=== PATIENT | female | born 1990 | race African-American/Black ===

== ENCOUNTER 2018-04-09 03:42 | Emergency (ER) | payer MEDICAID ==
[~2018-04-09] VITALS: Ht 165.1 cm; Wt 75.0 kg
[2018-04-09] MEDS ORDERED: PREDNISONE 20MG TABLET PO STA (03:59)
[2018-04-09] MEDS ORDERED: ALBUTEROL (0.083%) 2.5MG/3ML NEB HHN STA (03:59)
[2018-04-09] MEDS ORDERED: IPRATROPIUM BROMIDE (0.02%) 0.5MG/2.5ML NEB HHN STA (03:59)
[2018-04-09 06:10] VITALS: BP 116/95
== END 2018-04-09 07:20 | disposition home or self-care (01) ==
LOC: ER 03:42
DX: Z33.1 Pregnant state, incidental (principal); J45.901 Unspecified asthma with (acute) exacerbation
CPT/HCPCS: 81025; 99283; J7512; J7611

== ENCOUNTER 2018-04-09 14:19 | Inpatient (IN) | payer MEDICAID ==
[~2018-04-09] VITALS: Ht 165.1 cm; Wt 76.9 kg
[2018-04-09] MEDS ORDERED: METHYLPREDNISOLONE SOD SUCC 125 MG/2 ML VIAL IV STA (14:27)
[2018-04-09] MEDS ORDERED: ALBUTEROL (0.083%) 2.5MG/3ML NEB HHN STA (14:27)
[2018-04-09] MEDS ORDERED: IPRATROPIUM BROMIDE (0.02%) 0.5MG/2.5ML NEB HHN STA (14:27)
[2018-04-09] MEDS ORDERED: EPINEPHRINE 1:1000 1 MG/ML AMP SUBCUT ONE (14:30)
[2018-04-09] MEDS ORDERED: MAGNESIUM 2 G PREMIX 50 ML IV ONE (14:30)
[2018-04-09] MEDS ORDERED: SODIUM CHLORIDE 0.9% 1,000 ML IV ONE (14:33)
[2018-04-09] MEDS ORDERED: ALBUTEROL (0.5%) 2.5MG/0.5ML NEB HHN ONE (14:40)
[2018-04-09] MEDS ORDERED: LORAZEPAM 2MG/ML CPJ IV ONE (14:45)
[2018-04-09 15:22] LABS: BASOPHILS % 0.3 % (0.0-2.0); HEMATOCRIT. 37.7 % (36.0-48.0); HEMOGLOBIN. 13.2 g/dL (12.0-16.0); MEAN CORPUSCULAR HEMOGLOBIN 33.7 pg (28.0-32.0); MEAN CORPUSCULAR VOLUME 96.4 fL (81.0-99.0); MEAN PLATELET VOLUME 6.9 fl (7.4-10.4); MONOCYTES % 4.7 % (2.0-8.0); PLATELET 412 x1000/uL (130-400); RED BLOOD CELL COUNT 3.91 mill/uL (4.2-5.4)
[2018-04-09 15:26] LABS: CHLORIDE 109 mEq/L (98-107)
[2018-04-09 15:28] LABS: PROTHROMBIN TIME 10.4 sec (9.4-11.6)
[2018-04-09 15:40] LABS: B-HCG QUANTITATIVE 435 mIU/mL (<3)
[2018-04-09 15:45] LABS: HCG SCREEN POSITIVE
[2018-04-09 16:02] LABS: BG BILEVEL POS AIRWAY PRESSURE 15/5; BG CARBOXYHEMOGLOBIN 0.3 % (0.5-1.5); BG DEOXYHEMOGLOBIN 1.2 % (0.0-5.0); BG FRACTION INSPIRED OXYGEN 50; BG HCO3 ACT 19.2 mmol/L (22.0-26.0); BG METHEMOGLOBIN 0.2 % (0.0-1.5); BG OXYGEN SATURATION 98.8 % (92.0-98.5); BG OXYHEMOGLOBIN 98.3 % (94.0-97.0); BG PCO2 37.1 mmHg (35.0-45.0); BG PH 7.332 (7.350-7.450); BG PO2 171.5 mmHg (75.0-100.0); BG SAMPLE SITE RIGHT RADIAL; BG TOTAL HEMOGLOBIN 14.6 g/dL (12.0-18.0); BG VENT MODE MASK - BIPAP; BG VENT RATE 16 set
[2018-04-09 17:18] LABS: *BARBITURATES SCREEN URINE NEGATIVE (NEGATIVE); *BENZODIAZEPINES SCREEN URINE NEGATIVE (NEGATIVE)
[2018-04-09 17:19] LABS: *COCAINE SCREEN URINE NEGATIVE (NEGATIVE); METHADONE URINE SCREEN NEGATIVE (NEGATIVE); OPIATES URINE SCREEN NEGATIVE (NEGATIVE); PHENCYCLIDINE URINE SCREEN NEGATIVE (NEGATIVE)
[2018-04-09 17:26] LABS: *AMPHETAMINES SCREEN URINE PRESUMTIVE POSITIVE (NEGATIVE); CANNABINOID URINE SCREEN PRESUMTIVE POSITIVE (NEGATIVE)
[2018-04-09] MEDS ORDERED: LORAZEPAM 2MG/ML CPJ IV NR (19:30)
[2018-04-09 22:30] VITALS: BP 142/95
[2018-04-09] MEDS ORDERED: ONDANSETRON HCL 4MG/2ML VIAL IV PRN (23:00)
[2018-04-09] MEDS ORDERED: CLONIDINE 0.1MG TABLET PO PRN (23:00)
[2018-04-09] MEDS ORDERED: IPRATROPIUM/ALBUTEROL 0.5-3(2.5)MG/3ML NEB INH PRN (23:00)
[2018-04-09] MEDS ORDERED: ACETAMINOPHEN 325MG TABLET PO PRN (23:00)
[2018-04-10] VITALS (9 sets, daily range): BP systolic 100–140; BP diastolic 68–88
[2018-04-10] MEDS: METHYLPREDNISOLONE SOD SUCC 125 MG/2 ML VIAL IV SCH ×3 (00:31→12:34)
[2018-04-10] MEDS: LORAZEPAM 2MG/ML CPJ IV PRN ×2 (01:49→12:34)
[2018-04-10] MEDS ORDERED: AMLODIPINE 10MG TABLET PO SCH (09:00)
== END 2018-04-10 14:25 | disposition left against medical advice (07) | DRG 566 ==
LOC: ER 14:23 → 5EST 17:08 → ENRESERV 21:32
PROVIDERS: ADMIT Hospitalist; ATTEND Hospitalist
PROC: 5A09357 Assistance with Respiratory Ventilation, Less than 24 Consecutive Hours, Continuous Positive Airway Pressure (ICD-10-PCS; principal; 2018-04-09)
DX: O99.511 Diseases of the respiratory system complicating pregnancy, first trimester (principal); J45.902 Unspecified asthma with status asthmaticus; Z53.21 Procedure and treatment not carried out due to patient leaving prior to being seen by health care provider; Z3A.00 Weeks of gestation of pregnancy not specified
CPT/HCPCS: 36415; 36600; 71045; 80053; 80305; 82375; 82805; 83690; 83880; 84484; 84702; 84703; 85025; 85610; 85730; 86850; 86900; 93005; 94640; 94660; C1893; J2060; J2405; J2930; J3475; J3490; J7030; J7611; J7620

== ENCOUNTER 2018-04-26 13:37 | Emergency (ER) | payer MEDICAID ==
[~2018-04-26] VITALS: Ht 160 cm; Wt 56.0 kg
[2018-04-26 14:52] VITALS: BP 137/87
[2018-04-26 15:31] LABS: BASOPHILS % 0.2 % (0.0-2.0); EOSINOPHILS % 0.7 % (0.0-5.0); HEMATOCRIT. 35.1 % (36.0-48.0); HEMOGLOBIN. 12.4 g/dL (12.0-16.0); LYMPHOCYTES % 30.9 % (20.0-50.0); MEAN CORPUSCULAR HEMOGLOBIN 33.9 pg (28.0-32.0); MEAN CORPUSCULAR VOLUME 95.7 fL (81.0-99.0); MEAN PLATELET VOLUME 6.8 fl (7.4-10.4); MONOCYTES % 10.3 % (2.0-8.0); NEUTROPHILS % 57.9 % (40.0-76.0); PLATELET 324 x1000/uL (130-400); RED BLOOD CELL COUNT 3.66 mill/uL (4.2-5.4); RED CELL DISTRIBUTION WIDTH 13.1 % (11.6-14.6)
[2018-04-26 15:35] LABS: CHLORIDE 109 mEq/L (98-107)
[2018-04-26 15:57] LABS: B-HCG QUANTITATIVE 52541 mIU/mL (<3)
[2018-04-26 16:33] LABS: CLARITY URINE CLEAR (CLEAR); COLOR URINE YELLOW (YELLOW); KETONES URINE 1+ (NEGATIVE); LEUKOCYTE ESTERASE URINE NEGATIVE (NEGATIVE); NITRITE URINE NEGATIVE (NEGATIVE); OCCULT BLOOD URINE NEGATIVE (NEGATIVE); PH URINE 5.5 (4.5-8.0); PROTEIN URINE NEGATIVE (NEGATIVE); SPECIFIC GRAVITY URINE 1.021 (1.005-1.030); UROBILINOGEN URINE 0.2 E.U./dL (0.2-1.0)
[2018-04-26 16:45] LABS: *BARBITURATES SCREEN URINE NEGATIVE (NEGATIVE)
[2018-04-26 16:46] LABS: *BENZODIAZEPINES SCREEN URINE NEGATIVE (NEGATIVE); *COCAINE SCREEN URINE NEGATIVE (NEGATIVE); METHADONE URINE SCREEN NEGATIVE (NEGATIVE); OPIATES URINE SCREEN NEGATIVE (NEGATIVE); PHENCYCLIDINE URINE SCREEN NEGATIVE (NEGATIVE)
[2018-04-26 16:47] LABS: *AMPHETAMINES SCREEN URINE PRESUMTIVE POSITIVE (NEGATIVE); CANNABINOID URINE SCREEN PRESUMTIVE POSITIVE (NEGATIVE)
== END 2018-04-26 15:43 | disposition home or self-care (01) ==
LOC: ER 15:17
DX: O26.891 Other specified pregnancy related conditions, first trimester (principal); O99.511 Diseases of the respiratory system complicating pregnancy, first trimester; J45.909 Unspecified asthma, uncomplicated; O99.341 Other mental disorders complicating pregnancy, first trimester; F41.9 Anxiety disorder, unspecified; F20.9 Schizophrenia, unspecified; O99.321 Drug use complicating pregnancy, first trimester; F15.10 Other stimulant abuse, uncomplicated; Z3A.01 Less than 8 weeks gestation of pregnancy
CPT/HCPCS: 36415; 80048; 80305; 81003; 81025; 84702; 85025; 99284

== ENCOUNTER 2019-01-08 01:19 | Emergency (ER) | payer MEDICAID ==
[~2019-01-08] VITALS: Ht 162.6 cm; Wt 73.0 kg
[2019-01-08 01:40] VITALS: BP 144/94
== END 2019-01-08 03:22 | disposition home or self-care (01) ==
LOC: ER 01:19
DX: Z76.0 Encounter for issue of repeat prescription (principal); F20.9 Schizophrenia, unspecified; G47.00 Insomnia, unspecified; F41.9 Anxiety disorder, unspecified; J45.909 Unspecified asthma, uncomplicated
CPT/HCPCS: 99284

== ENCOUNTER 2019-01-08 04:55 | Emergency (ER) | payer MEDICAID ==
[2019-01-08 08:46] VITALS: BP 129/72
== END 2019-01-08 08:46 | disposition home or self-care (01) ==
LOC: ER 05:00
DX: Z76.0 Encounter for issue of repeat prescription (principal); J45.909 Unspecified asthma, uncomplicated; F20.9 Schizophrenia, unspecified; F41.9 Anxiety disorder, unspecified
CPT/HCPCS: 99283

== ENCOUNTER 2019-01-18 07:58 | Emergency (ER) | payer MEDICAID ==
[~2019-01-18] VITALS: Ht 157.5 cm; Wt 95.0 kg
[2019-01-18 08:04] VITALS: BP 123/68
== END 2019-01-18 09:15 | disposition left against medical advice (07) ==
LOC: ER 07:58
DX: R05 Cough (principal); Z53.21 Procedure and treatment not carried out due to patient leaving prior to being seen by health care provider